=== PATIENT | female | born 1995 | race Caucasian/White ===

== ENCOUNTER 2023-12-04 19:07 | Emergency (ER) | payer MEDICAID ==
[~2023-12-04] VITALS: Ht 160 cm; Wt 62.0 kg
[2023-12-04 19:07] VITALS: BP 103/53; PULSE 67; RESP 20; O2SAT 100
== END 2023-12-04 21:40 | disposition left against medical advice (07) ==
LOC: ER 19:07
DX: R51.9 Headache, unspecified (principal); R22.0 Localized swelling, mass and lump, head; Z53.21 Procedure and treatment not carried out due to patient leaving prior to being seen by health care provider